=== PATIENT | female | born 1950 | race Caucasian/White ===

== ENCOUNTER 2021-09-12 10:07 | Outpatient (REF) | payer MEDICARE, SELFPAY ==
[2021-09-12 10:34] LABS: COVID-19 Test Negative (Negative)
== END 2021-09-12 10:08 | disposition home or self-care (01) ==
LOC: HO.LAB 10:07
PROVIDERS: Visit Provider Internal Medicine
DX: Z20.822 Contact with and (suspected) exposure to COVID-19 (principal)
CPT/HCPCS: 36415; 87635; C9803

== ENCOUNTER 2021-10-29 14:04 | Outpatient (REF) | payer MEDICARE, SELFPAY ==
[2021-10-29 14:23] LABS: Binax Internal Control QC Valid; Binax Now Covid-19 Ag Negative (Negative)
== END 2021-10-29 14:05 | disposition home or self-care (01) ==
LOC: HO.LAB 14:04
PROVIDERS: PCP Internal Medicine; Visit Provider Internal Medicine
DX: Z13.89 Encounter for screening for other disorder (principal)

== ENCOUNTER 2023-11-06 09:57 | Outpatient (AMB) | payer MEDICARE, SELFPAY ==
--- NOTE | 2023-11-06 09:58 | AM.OFFWIN_ITS ---
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 Denies any fall or injury. Patient thinks that she may have a poor sleeping position or may need to change her pillow. Denies any arm radiation, numbness, or weakness. Reports a tightness in her neck muscles. [facility] Social History Patient Tobacco Use Status: Never used Tobacco Review of Systems Const All systems reviewed & are unremarkable except as noted in HPI and below Physical Exam Const General: cooperative and no acute distress Nutritional Appearance: average body habitus Limitations: no limitations HEENT Head: Yes normal to inspection Neck Neck: Yes normal visual inspection and Yes no lymphadenopathy Resp Effort & Inspection: normal respiratory effort Auscultation: clear to auscultation bilaterally Cardio Jugular venous distension: no JVD Palpation: normal PMI Rate: regular rate Rhythm: regular rhythm Back/Spine/Pelvis Cervical Spine: normal cervical lordosis, cervical ROM normal and cervical muscular tenderness (bilateral trapezius tautness/tenderness to palp b/l R>L) Thoracic/Lumbar Spine: thoracic and lumbar spine normal to inspection and thoraco-lumbar ROM normal Skin General skin exam: no rashes or lesions noted Extrem General: Yes capillary refill normal and Yes no clubbing, cyanosis or edema Psych Appearance: grossly normal Mental Status: mental status grossly normal Speech and movement: Normal speech and movement present Assessment & Plan Assessment & Plan (1) Strain of trapezius muscle: Code(s): S46.884A - Strain of other muscles, fascia and tendons at shoulder and upper arm level, unspecified arm, initial encounter Qualifiers: Encounter type: initial encounter Plan: Patient has bilateral trapezius muscle tenderness. These muscles are quite taut. I advised she try a heating pad, topical cream such as ice/hot, and NSAIDs. She can try some gentle massage to tender areas. I will also prescribe her a short course of muscle relaxers to take at as needed for muscle pain/spasms. We reviewed indication, use, possible side effects of these. She has an appointment with her PCP next Thursday, and I discussed with her that if she has ongoing pain at that time, to discuss possible referral to pain management office at [facility] for trigger point injections. She verbalizes understanding and agrees to plan. Coding Level of Care Code Est Pt Level 3 (51478) Diagnoses Strain of trapezius muscle S46.885D Encounter type: initial encounter
[2023-11-06 10:04] VITALS: BP 160/70; PULSE 96; TEMP 36.9; O2SAT 97; BMI 24.6
== END 2023-11-06 10:43 | disposition home or self-care (01) ==
PROVIDERS: PCP Internal Medicine; Visit Provider Nurse Practitioner Family
DX: S46.819A Strain of other muscles, fascia and tendons at shoulder and upper arm level, unspecified arm, initial encounter (principal)
CPT/HCPCS: 99213